=== PATIENT | female | born 1990 | race Two or more races ===

== ENCOUNTER 2020-01-01 20:14 | Emergency (ER) | payer MEDICAID, OTHER ==
[~2020-01-01] VITALS: Ht 162.6 cm; Wt 60.3 kg
[2020-01-01 22:39] VITALS: BP 123/92
[2020-01-01] MEDS ORDERED: TETANUS-DIPTH-ACEL PERTUSSIS 0.5ML SYR Tdap IM ONE (23:30)
== END 2020-01-01 23:47 | disposition home or self-care (01) ==
LOC: ER 20:18
DX: S61.411A Laceration without foreign body of right hand, initial encounter (principal); Z88.8 Allergy status to other drugs, medicaments and biological substances; W25.XXXA Contact with sharp glass, initial encounter; Y93.89 Activity, other specified; Y92.89 Other specified places as the place of occurrence of the external cause; Y99.8 Other external cause status
CPT/HCPCS: 12002; 73130; 90471; 90715

== ENCOUNTER 2020-02-13 19:11 | Emergency (ER) | payer MEDICAID ==
[~2020-02-13] VITALS: Ht 162.6 cm; Wt 61.2 kg
[2020-02-13] MEDS ORDERED: IOHEXOL 300 MG/ML 100ML BOTTLE IJ ONE (20:40)
[2020-02-13] MEDS ORDERED: KETOROLAC TROMETH 15 mg/ml 1ML VL IV ONE (22:00)
[2020-02-13] MEDS ORDERED: ONDANSETRON HCL 4 MG/2 ML VIAL IV ONE ×2 (22:00)
[2020-02-13] MEDS ORDERED: KETOROLAC TROMETH 30 MG/ML 1ML VIAL IV ONE (22:00)
[2020-02-13 22:27] LABS: Basophils # (auto) 0 10 ^3/uL (0-0.2); Basophils % (auto) 0.5 % (0.0-2.0); Eosinophils # (auto) 0.2 10 ^3/uL (0-0.8); Eosinophils % (auto) 2.9 % (0.0-7.0); Hematocrit 41.9 % (36.0-46.0); Hemoglobin 14.4 g/dL (12.2-16.2); Lymphocytes # (auto) 2.6 10 ^3/uL (0.4-5.4); Mean Corpuscular Hemoglobin 31.9 pg (28.0-32.0); Mean Corpuscular Hgb Conc. 34.4 g/dL (32.0-36.0); Mean Corpuscular Volume 92.8 fL (80.0-100.0); Monocytes # (auto) 0.5 10 ^3/uL (0-1.3); Monocytes % (auto) 8.2 % (0.0-12.0); Neutrophils # (auto) 2.6 10 ^3/uL (1.6-8.6); Neutrophils % (auto) 44.4 % (37.0-80.0); Nucleated Red Blood Cells % 0.2 %; Platelet Count (auto) 224 10^3/uL (140-450); Red Blood Cells 4.51 10^6/uL (4.0-5.20); Red Cell Distribution Width 12.7 % (11.8-14.3)
[2020-02-13 22:37] LABS: Albumin 4.2 g/dL (3.4-5.0); Calcium 8.6 mg/dL (8.5-10.1); Potassium 4.2 mmol/L (3.5-5.1)
[2020-02-13 22:41] LABS: BUN/Creatinine Ratio 20.7; Bilirubin, Total 0.3 mg/dL (0.2-1.0); Total Protein 7.3 g/dL (6.4-8.2)
[2020-02-13 22:50] VITALS: BP 124/76
== END 2020-02-13 23:46 | disposition still patient (30) ==
LOC: ER 19:11
DX: S60.211A Contusion of right wrist, initial encounter (principal); S09.8XXA Other specified injuries of head, initial encounter; E27.8 Other specified disorders of adrenal gland; F17.210 Nicotine dependence, cigarettes, uncomplicated; Z88.8 Allergy status to other drugs, medicaments and biological substances; W18.00XA Striking against unspecified object with subsequent fall, initial encounter; Y93.89 Activity, other specified; Y92.89 Other specified places as the place of occurrence of the external cause; Y99.8 Other external cause status
CPT/HCPCS: 36415; 70450; 71046; 72125; 72131; 73110; 74177; 80053; 85025; 96374; 96375; 99285; J1885; J2405; Q9967

== ENCOUNTER 2024-03-11 22:52 | Emergency (ER) | payer MEDICAID ==
[~2024-03-11] VITALS: Ht 162.6 cm; Wt 51.3 kg
[2024-03-12] MEDS: metroNIDAZOLE 500 MG TAB PO ONE (00:28)
[2024-03-12] MEDS: PENICILLIN G BENZ 1,200,000 UNITS/2 ML SYRG IM ONE (00:29)
[2024-03-12 00:36] VITALS: BP 125/92; PULSE 108; RESP 18; TEMP 97.8; O2SAT 97
[2024-03-12] MEDS ORDERED: MET500T PO (00:55)
[2024-03-12] MEDS ORDERED: CLIN2CRE7 VG (00:55)
[2024-03-12] MEDS ORDERED: [UNRECOGNIZED DRUG - CODE] BU (00:55)
== END 2024-03-12 01:04 | disposition home or self-care (01) ==
LOC: ER 22:52
DX: N76.0 Acute vaginitis (principal); B37.0 Candidal stomatitis; J02.0 Streptococcal pharyngitis; F17.210 Nicotine dependence, cigarettes, uncomplicated; Z88.8 Allergy status to other drugs, medicaments and biological substances
CPT/HCPCS: 96372; 99283; J0561